=== PATIENT | male | born 1965 | race African-American/Black ===

== ENCOUNTER 2019-08-24 17:18 | Emergency (ER) | payer OTHER ==
[~2019-08-24] VITALS: Ht 175.3 cm; Wt 97.7 kg
[2019-08-24] MEDS ORDERED: LIDOCAINE 2% 20 ML VIAL. IJ STA (17:44)
[2019-08-24 17:45] VITALS: BP 173/93
[2019-08-24] MEDS ORDERED: CIPR250T PO (18:21)
--- NOTE | 2019-08-24 18:21 | PHYS DOC ---
Past Medical History Past Medical History: Diabetes-Type II Alcohol Use: None Adult General Chief Complaint Chief Complaint: LACERATION/AVULSION [facility] HPI Patient is a 53 year old male who presents with a laceration to the top of his R foot. The patient states that this happened 30 mins prior to arrival. The patient states that this was due to him tried to break of a porcelain toilet and part of it cut his foot. He does have a history of diabetes. Denies any other symptoms or any pain. He is unsure when his last tetanus shot was. Complete ROS were reviewed and found to be within normal limits, except as documented in the HPI Current Medications Current Medications Current Medications Medications (Trade) Dose Ordered Sig/Tyler Start Time Stop Time Status Last Admin Dose Admin Diphtheria/ Tetanus/Acell Pertussis (Boostrix) 0.5 ml ONCE ONCE 08/24/19 18:30 08/24/19 18:31 DC Lidocaine HCl 20 ml 1X STAT 08/24/19 17:44 08/24/19 17:53 DC 08/24/19 17:44 20 ML Neomycin/ Polymyxin/ Bacitracin (Triple Antibiotic Ointment) 1 pkt 1X STAT 08/24/19 18:22 08/24/19 18:25 DC Allergies Allergies Allergies Coded Allergies Type Severity Reaction Last Updated Verified No Known Drug Allergies 08/24/19 No Physical Exam Physical Exam Constitutional: Well developed, well nourished, no acute distress, non-toxic appearance. [] HENT: Normocephalic, atraumatic, bilateral external ears normal, oropharynx moist, no oral exudates, nose normal. [] Eyes: PERRLA, EOMI, conjunctiva normal, no discharge. [] Skin: 3 cm laceration to top of R foot below 1st digit. Back: No tenderness, no CVA tenderness. [] Extremities: No tenderness, no cyanosis, no clubbing, ROM intact, no edema. [] Neurologic: Alert and oriented X 3, normal motor function, normal sensory function, no focal deficits noted. [] Psychologic: Affect normal, judgement normal, mood normal. [] Current Patient Data Vital Signs Vital Signs Date Time Temp Pulse Resp B/P (MAP) Pulse Ox O2 Delivery O2 Flow Rate FiO2 08/24/19 17:45 98.5 95 20 173/93 (119) 98 Room Air 98.5 EKG EKG [] Radiology/Procedures Radiology/Procedures Indication: Laceration of R Foot Procedure: The patient was placed in the appropriate position and anesthesia around the 2% lidocaine. The area was then cleansed with 210 mL of NS. The laceration was closed with 7, 4-0 Nylon sutures. The wound area was then dressed with dressing. Total repaired wound length: 3 cm. Complications: None Course & Med Decision Making Course & Med Decision Making Pertinent Labs and Imaging studies reviewed. (See chart for details) Will suture laceration and place on Ciprofloxacin for antibiotics coverage due to coverage of pseudomonas. Dragon Disclaimer Dragon Disclaimer This electronic medical record was generated, in whole or in part, using a voice recognition dictation system. Departure Departure Impression: Primary Impression: Laceration Disposition: 01 HOME, SELF-CARE Condition: STABLE Referrals: WALKER MURPHY S[facility]ER (PCP) Patient Instructions: Laceration Care, Adult Additional Instructions: Thank you for visiting [facility]. We appreciate you trusting us with your care. If any additional problems come up don't hesitate to return to visit us. Please follow up with your primary care provider so they can plan additional care if needed and know about the problem that you had. If symptoms worsen come back to the Emergency Department. Any concerning symptoms that start such as chest pain, shortness of air, weakness or numbness on one side of the body, running high fevers or any other concerning symptoms return to the ER. You have been prescribed an antibiotic today to help fight your infection. Please take all of the antibiotic as directed. If after 48 hours the infection is not improving, please return for more care. If the infection worsens, return to ER for additional care. Please keep your wound dry, especially for the first 24 hours. After the first 24 hours you can wet the wound for a short time. Do not soak the wound or swim until the sutures have been removed. Please have the sutures removed in 7-10 days by your primary care doctor or return to ER for removal. Please keep the wound clean and change your bandage at least twice per day. You can use Neosporin on the wound to help reduce the chance of infection. If you notice signs of infection such as drainage from the wound (Pus), redness, increased pain or swelling return to ER for treatment. Scripts Ciprofloxacin Hcl (CIPROFLOXACIN HCL) 250 Mg Tablet 750 MG PO BID for 10 Days, #60 TAB Prov: ARIEL MONDRAGON APRN 08/24/19 ARIEL MONDRAGON APRN Aug 24, 2019 18:21
[2019-08-24] MEDS ORDERED: NEOMY/BACITR/POLYMYXIN OINT PACKET. TP STA (18:22)
[2019-08-24] MEDS ORDERED: DIPHTH,PERTUSS(ACELL),TET TOX 0.5 ML DISP.SYRIN. VAX IM ONE (18:30)
== END 2019-08-24 19:10 | disposition home or self-care (01) ==
LOC: ER 17:18
DX: S91.311A Laceration without foreign body, right foot, initial encounter (principal); E11.9 Type 2 diabetes mellitus without complications; Y28.8XXA Contact with other sharp object, undetermined intent, initial encounter; Y93.89 Activity, other specified; Y92.89 Other specified places as the place of occurrence of the external cause; Y99.8 Other external cause status
CPT/HCPCS: 12002; 90471; 90715; 99283; J2001

== ENCOUNTER → 2020-04-04 | Outpatient (CLI) | payer OTHER ==
[~2020-04-04] MED LIST: CIPR250T PO
--- NOTE | 2020-04-04 14:20 | KCIC ---
RIGHT LOWER QUANDRANT History: Knot above the umbilical area Comparison: None. Findings: Multiple sonographic images directed toward the site of concern of the above the umbilicus are submitted. At site of concern, located about 1.5 cm deep to the skin,, there is a somewhat oblong 1 cm x 0.6 x 0.3 cm focus of hypoechogenicity with increased through transmission, not associated with significant internal vascularity on color Doppler imaging. Impression: 1. There is an avascular focus of hypoechogenicity at site of concern, located superior to the umbilicus. This may be small focus of somewhat complex fluid. Electronically signed by: Pablo Elizabeth MD (04/04/2020 2:17 PM) [id number]
== END ==
LOC: KCIC US 12:50
PROVIDERS: ATTEND Nurse Practitioner
DX: R19.03 Right lower quadrant abdominal swelling, mass and lump (principal)
CPT/HCPCS: 93975